=== PATIENT | male | born 1955 | race Caucasian/White ===

== ENCOUNTER → 2021-03-12 15:47 | Outpatient (CLI) | payer MEDICARE, SELFPAY | PROVIDERS: Family Provider Student in an Organized Health Care Education/Training Program; PCP Internal Medicine; Visit Provider Internal Medicine | DX: R21 Rash and other nonspecific skin eruption (principal) | CPT/HCPCS: 87070; 87075; 87205; 87252 ==

== ENCOUNTER 2021-08-18 18:09 | Emergency (ER) | payer MEDICARE, SELFPAY ==
[2021-08-18 18:13] VITALS: BP 164/85; PULSE 65; RESP 18; TEMP 36.9; O2SAT 96
--- NOTE | 2021-08-18 19:32 | DI.RAD.S_ITS ---
PROCEDURE: XR HAND LT MIN 3V INDICATIONS: crush injury. TECHNIQUE: 3 views of the hand(s) acquired. COMPARISON: None. FINDINGS: Bones: No fractures or dislocations. Carpal bones are normally aligned. No suspicious bony lesions. Soft tissues: No suspicious soft tissue calcifications. 1-2 mm radiodensity is noted adjacent to the tuft the 5th distal phalanx. IMPRESSION: No visualized acute fracture or dislocation. However, if clinical concern and/or pain persist, short interval imaging followup in 7-10 days is recommended, as occult injury cannot be definitively excluded. 1-2 mm radiodensity noted adjacent to the 5th distal phalanx tuft. While this could represent area of dense soft tissue calcification, radiopaque foreign body cannot be excluded and recommend clinical correlation. Dictated by: Linh Godinez M.D. on 08/18/2021 at 20:02 Approved by: Linh Godinez M.D. on 08/18/2021 at 20:07
[2021-08-18] MEDS: LIDO 1%/SOD BICARB 8.4% (10ML) 10 ML SYRINGE INJ (19:33)
[2021-08-18] MEDS: BACITRACIN OINT 0.9 GM PCKT 1 APPLIC TOP (19:33)
--- NOTE | 2021-08-18 19:33 | ED_ITS ---
HPI - Wound/Laceration General Chief Complaint: Wound/Laceration Stated Complaint: Crushed Both Hands, Tree Branch Time Seen by Provider: 08/18/21 19:25 Source: patient Mode of arrival: Ambulatory History of Present Illness HPI narrative: Patient is a 66-year-old male who is here for evaluation of cut to his left hand. He states that earlier this evening he was using a chain saw cutting down a tree that had blown over. He states that a large branch from the tree fell over hitting him on both of his hands and also the top of his left leg. Did not hit his head. Sustained a cut to the back of his hand. Has bruising to his right hand/forearm. He states that his right leg is sore but he is able to walk. Related Data Home Medications Medication Instructions Recorded Confirmed omeprazole 20 mg capsule,delayed #0 01/19/18 03/12/21 release mometasone [Asmanex HFA] INHALATION 03/12/21 03/12/21 Previous Rx's Medication Instructions Recorded cephalexin 500 mg capsule 500 mg PO QID #28 cap 03/12/21 Allergies Allergy/AdvReac Type Severity Reaction Status Date / Time No Known Allergies Allergy Uncoded 03/12/21 15:17 Review of Systems Musculoskeletal Musculoskeletal: Reports system reviewed and no additional complaints, except as documented Integumentary/Breasts Skin/Breast: Reports system reviewed and no additional complaints, except as documented Neurologic Neurologic: Reports system reviewed and no additional complaints, except as documented Hematologic/Lymphatic On Anticoagulants: No Patient History Medical History Asthma (~2018) Chicken pox (~1958) Measles (~1957) Sleep apnea in adult (~2004) Tinnitus (~2000) Surgical History (Updated 04/07/21 @ 22:10 by Jessie Purcell) Anesthesia H/O adenomatous polyp of colon (~2019) History of nasal surgery (~1987) Family History (Updated 04/07/21 @ 22:11 by Jessie Purcell) Father Stroke Mother No problems noted. Grandfather Cancer Social History Smoking Status: Never smoker Smoking Status: Never smoker Exam Initial Vital Signs Initial Vital Signs: Vital Signs Temperature 98.5 F 08/18/21 18:13 Pulse Rate 65 08/18/21 18:13 Respiratory Rate 18 08/18/21 18:13 Blood Pressure 164/85 H 08/18/21 18:13 Pulse Oximetry 96 08/18/21 18:13 [facility] Head: normal to inspection and normocephalic Cardio Pulses: radial pulses present bilaterally Skin Other: Patient has bruising on the dorsum of his right hand and right forearm. He does have a 6 cm laceration on the dorsum of his left hand radial aspect. He also has a 3 cm skin tear on the dorsum of his left hand as well. Neuro Sensory Exam: no sensory deficits noted Extrem Other: Patient has full range of motion of bilateral shoulders elbows and wrists. Has only minor discomfort with palpation of his carpal and metacarpal bones. His hips and knees are unremarkable. No ankle or foot complaints. Procedures Laceration Repair Laceration 1: Site: hand Side (If applicable): left Size (cm): 6 Description: linear Depth: simple, single layer Local Anesthetic: lidocaine 1% and with bicarb Amount of anesthesia used (mL): 8 Pre-repair: wound explored, irrigated extensively and deep structures intact Skin layer closed with: nylon Size (cm): 4-0 Number of sutures: 10 Technique: simple, interrupted Course Orders Ordered: ED Orders 08/18/21 19:32 XR hand LT min 3V Stat Discontinued Medications Bacitracin (Bacitracin Oint 0.9 Gm Pckt) 1 applic TOP NOW ONE Stop: 08/18/21 19:26 Last Admin: 08/18/21 19:33 Dose: 1 applic Documented by: WAYNE Diphtheria/Tetanus/Acell Pertussis (Diph,Pertuss(Acell),Tet Vac/Pf 0.5 Ml Syringe) 0.5 ml IM .ONCE ONE Stop: 08/18/21 18:27 Last Admin: 08/18/21 19:59 Dose: Not Given Documented by: WAYNE Diphtheria/Tetanus/Acell Pertussis (Tet,Diph,Pertuss(Acell),Vac/Pf 0.5 Ml Syringe) 0.5 ml IM .ONCE ONE Stop: 08/18/21 20:16 Last Admin: 08/18/21 20:09 Dose: 0.5 ml Documented by: WAYNE Lidocaine/Sodium Bicarbonate (Lido 1%/Sod Bicarb 8.4% (10ml) 10 Ml Syringe) 10 ml INJ NOW ONE Stop: 08/18/21 19:26 Last Admin: 08/18/21 19:33 Dose: 10 ml Documented by: WAYNE Vital Signs Vital signs: Vital Signs - 8 hr 08/18/21 18:13 08/18/21 20:38 Temperature 98.5 F Pulse Rate 65 68 Respiratory Rate 18 18 Blood Pressure 164/85 H 166/82 H Pulse Oximetry 96 100 [facility] - Wound/Laceration Imaging Data Extremity x-ray #1: Radiologist's Impression: [address] [address] XRay Report Signed Patient: Fabrice Velásquez MR#: [id number] : 1955 Acct:[id number] Age/Sex: 66 / M Date of Service: 08/18/21 Loc: ED Accession Number: [id number] ?? Procedure: XR hand LT min 3V Ordering Provider: Michele Matrines D.O. PROCEDURE:? XR HAND LT MIN 3V ? INDICATIONS:? crush injury. ? TECHNIQUE:? 3 views of the hand(s) acquired.? ? COMPARISON:? None. ? FINDINGS:? ? Bones:? No fractures or dislocations.? Carpal bones are normally aligned.? No suspicious bony lesions.? ? Soft tissues:? No suspicious soft tissue calcifications.? 1-2 mm radiodensity is noted adjacent to the tuft the 5th distal phalanx. ? ? IMPRESSION:? ? No visualized acute fracture or dislocation. However, if clinical concern and/or pain persist, short interval imaging followup in 7-10 days is recommended, as occult injury cannot be definitively excluded. ? 1-2 mm radiodensity noted adjacent to the 5th distal phalanx tuft.? While this could represent area of dense soft tissue calcification, radiopaque foreign body cannot be excluded and recommend clinical correlation.? ? Dictated by: Linh Godinez M.D. on 08/18/2021 at 20:02 ? ? Approved by: Linh Godinez M.D. on 08/18/2021 at 20:07? [facility] Narrative Medical decision making narrative: X-ray does not show any signs of fracture. The laceration was closed as described above. He reports no other musculoskeletal injuries from the event. His tetanus was updated. He did not hit his head. No further radiologic studies needed. He was given care instructions and return precautions. He expressed understanding and agreement. Discharge Plan Departure Patient Disposition: Home Clinical Impression: Laceration, Contusion of skin Instructions: DI for Laceration Repair Activity Restrictions/Additional Instructions: The stitches do need to be removed in 7-10 days. Until then you can keep the area covered with a bandage. Place antibiotic ointment over the area. Return to the emergency department for any new or worsening symptoms Prescriptions: No Action omeprazole 20 MG capsule,delayed release(DR/EC) Qty: 0 RF: 0 mometasone inhalation RF: 0 cephalexin 500 mg capsule 500 mg PO QID Qty: 28 RF: 0 Referrals: Ritchie Catalan MD [Primary Care Provider] -
[2021-08-18] MEDS: TET,DIPH,PERTUSS(ACELL),VAC/PF 0.5 ML SYRINGE IM (20:09)
[2021-08-18 20:38] VITALS: BP 166/82; PULSE 68; RESP 18; O2SAT 100
== END 2021-08-18 20:39 | disposition home or self-care (01) ==
PROVIDERS: Emergency Provider Emergency Medicine; Family Provider Student in an Organized Health Care Education/Training Program; PCP Internal Medicine
DX: S61.412A Laceration without foreign body of left hand, initial encounter (principal); W27.0XXA Contact with workbench tool, initial encounter; Z23 Encounter for immunization
CPT/HCPCS: 12002; 73130; 90471; 99283; 99284; 90715